=== PATIENT | male | born 1950 | race Caucasian/White ===

== ENCOUNTER 2023-12-12 08:24 | Observation (INO) ==
[2023-12-12] MEDS ORDERED: Lidocaine 2% PF 5 ML VIAL ONE (08:30)
[2023-12-12] MEDS ORDERED: Propofol 10 MG/ML 20 ML BTL ONE ×2 (08:30→10:16)
[2023-12-12] MEDS ORDERED: KETAMINE HCL 10 MG/ML 20 ml VIAL (200 MG) ONE (08:30)
[2023-12-12] MEDS ORDERED: Bupivacaine-MPF SPINAL 7.5 MG/ML - 2ML AMP ONE (08:30)
[2023-12-12] MEDS ORDERED: Artificial Tear OPHTH.OINT 3.5 GM ONE (08:36)
[2023-12-12] MEDS ORDERED: Famotidine IV 10 MG/ML 2 ml VIAL (20 mg) ONE (08:40)
[2023-12-12] MEDS ORDERED: ceFAZolin 2 GM PREMIX 2 GM/50 ML BAG ONE (08:40)
[2023-12-12 09:16] LABS: Rapid COVID-19 Molecular Undetected (Undetected)
[2023-12-12] MEDS: Famotidine IV 10 MG/ML 2 ml VIAL (20 mg) IV ONE (09:17)
[2023-12-12] MEDS: Lactated Ringers 1000 ml BAG 1,000 ML IV SCH ×2 (09:18→14:11)
[2023-12-12] MEDS ORDERED: fentaNYL 100 mcg/2 ml 50 MCG/ML VIAL ONE ×3 (09:48→15:11)
[2023-12-12] MEDS ORDERED: ROPIVACAINE 5 MG/ML 30 ML BTL (0.5%) ONE ×2 (09:49→10:48)
[2023-12-12] MEDS ORDERED: Midazolam 2 mg/2 ml VIAL 1 mg/ml 2 ml VIAL (2 mg) ONE (09:49)
[2023-12-12] MEDS ORDERED: Rocuronium 50 mg VIAL 10 mg/ml 5 ml VIAL (50 mg) ONE ×2 (10:15→14:19)
[2023-12-12] MEDS ORDERED: fentaNYL 250 mcg/5 ml 50 MCG/ML 5 ml VIAL (250 MCG) ONE (10:15)
[2023-12-12] MEDS ORDERED: Tranexamic Acid 1 GM/100ML BAG 2,000 MG/200 ML BAG IV ONE (10:58)
[2023-12-12] MEDS ORDERED: Glycopyrrolate IV 0.2 MG/ML 1 ML VIAL ONE (11:20)
[2023-12-12] MEDS ORDERED: Dexamethasone IV 4 MG/ML VIAL 1 ml VIAL ONE (11:32)
[2023-12-12] MEDS ORDERED: Ondansetron 4 mg VIAL 2 MG/ML 2 ml VIAL ONE (11:32)
[2023-12-12] MEDS ORDERED: HYDROmorphone 1 MG/1 ML SYRINGE IV PRN (11:46)
[2023-12-12] MEDS ORDERED: Naloxone 0.4 mg VIAL 0.4 mg/ml 1 ml VIAL IV PRN (11:46)
[2023-12-12] MEDS ORDERED: Ondansetron 4 mg VIAL 2 MG/ML 2 ml VIAL IV PRN ×2 (11:46→13:43)
[2023-12-12] MEDS ORDERED: Acetaminophen IV 1 GM/100ML 1,000 MG/100 ML BAG IV ONE (12:50)
[2023-12-12] MEDS ORDERED: HYDROmorphone 0.5 MG/0.5 ML SYRINGE ONE (13:11)
[2023-12-12] MEDS ORDERED: Lactulose 30 ml UDC PO PRN (13:43)
[2023-12-12] MEDS ORDERED: Ondansetron ODT 4 mg TAB 4 MG TAB PO PRN (13:43)
[2023-12-12] MEDS ORDERED: Magnesium Hydroxide LIQ 30 ML UDC PO PRN (13:43)
[2023-12-12] MEDS ORDERED: Morphine 2 MG/ML SYRINGE IV PRN (13:43)
[2023-12-12] MEDS: Buffered Lidocaine 1% SYRIN 1 ml INTRADERM ONE (14:07)
[2023-12-12] MEDS: fentaNYL 100 mcg/2 ml 50 MCG/ML VIAL IV PRN (14:11)
[2023-12-12] MEDS: ceFAZolin 1 GM ADVAN 1 GM in NS 0.9% 50 ML 50 ML IVPB SCH (20:35)
[2023-12-12] MEDS ORDERED: DOXYLAMINE SUCCINATE 25 MG PO SCH (21:00)
[2023-12-12] MEDS: Magnesium Hydroxide LIQ 30 ML UDC PO SCH (21:01)
[2023-12-13 06:06] LABS: Hematocrit 35.1 % (38-53); Hemoglobin 12.1 g/dL (13.2-16.3); Mean Platelet Volume 7.3 fL (7.5-11.2); Platelet Count 128 10^3/uL (150-450)
[2023-12-13 06:24] LABS: Calcium 8.1 mg/dL (8.6-10.3); Creatinine, Serum 0.99 mg/dL (0.67-1.17); Potassium 4.2 mmol/L (3.5-5.0); eGFR CKD-EPI 80.4 (>60)
[2023-12-13] MEDS: Vitamin THERAPEUTIC TAB PO SCH (08:14)
[2023-12-13] MEDS: Aspirin EC 81 mg TAB.EC (enteric coated) PO SCH (08:14)
[2023-12-13 12:00] VITALS: BP 120/66
== END 2023-12-13 13:35 | disposition home or self-care (01) ==
LOC: OR 08:24 → SSU 08:24
PROVIDERS: ADMIT Orthopaedic Surgery Adult Reconstructive Orthopaedic Surgery; ATTEND Orthopaedic Surgery Adult Reconstructive Orthopaedic Surgery